=== PATIENT | male | born 1945 | race Caucasian/White ===

== ENCOUNTER 2016-09-24 12:18 | Emergency (ER) | payer OTHER, MEDICARE ==
[~2016-09-24] VITALS: Ht 177.8 cm; Wt 111.3 kg
[~2016-09-24 12:18] MED LIST: ACET325T51 PO; ALPR0.25 PEG; ASPI-914 PO; BACL10TA PO; BISA10SU8 RECTALLY; CARV12.52 PO; CEFE1VIA7 IM; CYCL30DR BOTH EYES; DOCU50LI PEG; DULO30CA52 PEG; FINA5TAB42 PO; FURO40TA5 PEG; GABA-336 PO; HYDR-4180 PO; HYDR-4246 PEG; IBUP100O15 PEG; INSU100V12 SQ; INSU100V13 SQ; IPRA3AMP AEROSOL; LEVO50TA PO; MAGN800O PEG; MULT9LIQ3 PEG; NA P133E23 RECTALLY; POLY17PO6 PEG; POTA20LI4 PEG; PRAV40TA3 PEG; PRED5TAB PEG; RISP1TAB27 PO; SPIR25TA4 PEG; TAMS0.4C47 PO; THIA100T13 PEG; TOFA5TAB PEG; TRAM50TA4 PO; ZINC220C8 PEG; [UNRECOGNIZED DRUG - CODE] PEG
[2016-09-24 12:20] VITALS: Ht 177.8 cm; Wt 111.3 kg
--- NOTE | 2016-09-24 12:20 | NUR ---
SCIENCE EDITOR N. NOLD SCIENCE EDITOR AT BEDSIDE.
--- OUTSIDE RECORDS SUMMARY | 2016-09-24 12:27 | XMS REPORT | Referral Summary ---
Author Author [facility] Organization [facility] Address Unknown Phone Unavailable Care Team Providers Care Retail Helper Name Role Phone Jodie Boyce Primary Care Physician [phone] Encounter VC Date(s): 05/28/16 - 05/30/16 [facility] [address] [place] [address] Discharge Disposition: 03-Detention Facility Attending Physician: Mini Harris MD Admitting Physician: Ngozi Pedraza MD Vital Signs Most recent to 1 oldest [Reference Range]: Temperature Oral 36.9 degC [35.8-37.3 degC] (05/30/16 8:00 AM) Peripheral Pulse 89 bpm Rate [60-100 bpm] (05/30/16 8:00 AM) Heart Rate Monitored 72 bpm [60-100 bpm] (05/28/16 7:20 PM) Respiratory Rate 16 br/min [14-20 br/min] (05/30/16 4:50 PM) Blood Pressure 101/66 mmHg [90-140/60-90 mmHg] (05/30/16 8:00 AM) Mean Arterial 82 mmHg Pressure, Cuff (05/28/16 7:01 PM) Pulse Rate [60-100 86 bpm bpm] (05/30/16 4:50 PM) SpO2 97 % (05/30/16 10:22 AM) Remote Telemetry Ongoing (05/29/16 8:00 PM) Problem List Condition Effective Dates Status Health Status Informant Acute Active pain(Confirmed) Alteration in Active nutrition(Confirmed) 1 Anemia(Confirmed) Active patient At risk of pressure Active sore(Confirmed) Bipolar 1 Active patient disorder(Confirmed) Cerebral Active patient infarction(Confirmed ) Chronic kidney Active patient disease (CKD)(Confirmed) Chronic obstructive Active patient pulmonary disease(Confirmed) Chronic pain Active patient syndrome(Confirmed) 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) Constipation(Confirm Active patient ed) Diabetes Active patient mellitus(Confirmed) 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(Confirmed) GERD Active patient (gastroesophageal reflux disease)(Confirmed) Gastrostomy Active patient status(Confirmed) Hypercholesterolemia Active patient (Confirmed) Hypertensive heart Active patient disease without heart failure(Confirmed) Fluid Active patient overload(Confirmed) Hypothyroidism(Confi Active patient rmed) Inflammatory Active patient polyarthropathies(Co nfirmed) Reduced Active patient mobility(Confirmed) Major depressive Active patient disorder(Confirmed) Manic bipolar I Active patient disorder(Confirmed) [place] Active patient syndrome(Confirmed) Muscle Active patient weakness(Confirmed) BPH (benign Active patient prostatic hyperplasia)(Confirm ed) Obesity(Confirmed) Active patient Obstructive sleep Active patient apnea(Confirmed) Pedophilia(Confirmed Active patient ) Pneumonitis due to Active patient inhalation of food and vomit(Confirmed) Psychoactive Active patient substance abuse(Confirmed) Feeling of Active patient incomplete bladder emptying(Confirmed) Suicidal Active patient ideations(Confirmed) Urinary tract Active patient infection(Confirmed) 1Problem added automatically by system based on initiation of Alteration in Nutrition Plan of Care Allergies, Adverse Reactions, Alerts Substance Reaction Severity Status lisinopril Adverse drug effect Medium Active methotrexate Adverse drug effect Medium Active penicillin Adverse drug effect Medium Active QUEtiapine Adverse drug effect Medium Active Terazosin-1 Adverse drug effect Medium Active valproic acid Adverse drug reaction Medium Active Medications aspirin 81 mg, Oral, Daily, 0 Refill(s) Start Date: 05/28/16 Status: Ordered Atropine 1% drops Atropine 1% drops, PRN Secretions, 1-2 drops every 8 hours, 0 Refill(s) Start Date: 05/28/16 Status: Ordered Bisac-Evac 10 mg rectal suppository 10 mg 1 supp, Rectal, Daily, as needed for constipation Start Date: 05/28/16 Status: Ordered busPIRone 10 mg, Oral, BID, 0 Refill(s) Start Date: 05/28/16 Status: Ordered carvedilol 12.5 mg, Oral, BID, 0 Refill(s) Start Date: 05/28/16 Status: Ordered clindamycin 150 mg oral capsule 300 mg 2 caps, Oral, q6hr, x2 days, 0 Refill(s) Start Date: 05/30/16 Status: Ordered Cymbalta 30 mg oral delayed release capsule 30 mg 1 caps, Oral, Daily, 0 Refill(s) Start Date: 05/28/16 Status: Ordered Debrox 6.5% otic solution 5 drops, Ear-Both, BID, X 4 days, # 15 mL, 0 Refill(s), other reason (Rx) Start Date: 05/30/16 Stop Date: 06/03/16 Status: Ordered docusate sodium 10 mg/mL oral liquid 100 mg 10 mL, G-Tube, BID, 0 Refill(s) Start Date: 05/28/16 Status: Ordered DuoNeb 0.5 mg-2.5 mg/3 mL inhalation solution 3 mL, NEB, QID, 0 Refill(s) Start Date: 05/28/16 Status: Ordered finasteride 5 mg oral tablet 5 mg 1 tabs, Oral, Daily, 0 Refill(s) Start Date: 05/28/16 Status: Ordered Fleet Enema 7 g-19 g rectal enema 1 Each, Rectal, Once, as needed for constipation Start Date: 05/28/16 Status: Ordered furosemide 40 mg, PEG-Tube, BID, 0 Refill(s) Start Date: 05/28/16 Status: Ordered gabapentin 300 mg, Oral, TID, 0 Refill(s) Start Date: 05/28/16 Status: Ordered ibuprofen 50 mg/1.25 mL oral suspension 800 mg 20 mL, PEG-Tube, TID, 0 Refill(s) Start Date: 05/28/16 Status: Ordered Levemir 100 units/mL subcutaneous solution 12 units, SubCutaneous, Bedtime (once a day), 0 Refill(s) Start Date: 05/30/16 Status: Ordered Levoxyl 50 mcg, Oral, Daily, 0 Refill(s) Start Date: 05/28/16 Status: Ordered MiraLax 17 g, Oral, BID, 0 Refill(s) Start Date: 05/28/16 Status: Ordered morphine 10 mg/5 mL oral solution 7.5 mg 3.75 mL, G-Tube, q8hr, Pain Severe (7-10), 0 Refill(s) Start Date: 05/30/16 Status: Ordered morphine 15 mg/12 hr oral tablet, extended release See Instructions, Take one per g-tube five times a day and one every 5 hours prn. joann [id number], # 500 tabs, 0 Refill(s) Start Date: 05/30/16 Status: Ordered multivitamin 1 tabs, Oral, Daily, 0 Refill(s) Start Date: 05/28/16 Status: Ordered NovoLOG 4 units, SubCutaneous, TIDAC, 0 Refill(s) Start Date: 05/28/16 Status: Ordered ondansetron 4 mg, Oral, q4hr, as needed for nausea/vomiting, 0 Refill(s) Start Date: 05/28/16 Status: Ordered pravastatin 20 mg, G-Tube, Bedtime (once a day), 0 Refill(s) Start Date: 05/28/16 Status: Ordered predniSONE 5 mg, PEG-Tube, Daily, 0 Refill(s) Start Date: 05/28/16 Status: Ordered Remeron 15 mg oral tablet 15 mg 1 tabs, Oral, Bedtime (once a day), 0 Refill(s) Start Date: 05/28/16 Status: Ordered Restasis 0.05% ophthalmic emulsion 1 drops, Eye-Both, BID, 0 Refill(s) Start Date: 05/28/16 Status: Ordered risperiDONE 0.5 mg oral tablet 1 mg 2 tabs, Oral, Bedtime (once a day), 0 Refill(s) Start Date: 05/28/16 Status: Ordered spironolactone 25 mg, Oral, BID, 0 Refill(s) Start Date: 05/28/16 Status: Ordered tamsulosin 0.4 mg, Oral, Bedtime (once a day), 0 Refill(s) Start Date: 05/28/16 Status: Ordered thiamine 100 mg, PEG-Tube, Daily, 0 Refill(s) Start Date: 05/28/16 Status: Ordered tofacitinib 5 mg, PEG-Tube, BID, start on Friday, 0 Refill(s) Start Date: 05/28/16 Status: Ordered Tylenol 325 mg oral capsule 650 mg 2 caps, Oral, q4hr, as needed for pain, *KRISTEN*, 0 Refill(s) Start Date: 05/28/16 Status: Ordered Tylenol 325 mg oral capsule 650 mg 2 caps, Oral, TID, *KRISTEN, 0 Refill(s) Start Date: 05/28/16 Status: Ordered Zinc 220 mg, PEG-Tube, Daily, 0 Refill(s) Start Date: 05/28/16 Status: Ordered Results Blood Gases Most recent to 1 oldest [Reference Range]: pH [7.35-7.45] 7.34 *LOW* (05/28/16 1:51 PM) pCO2 Art [35-45 75 mmHg mmHg] *HHI* (05/28/16 1:51 PM) Bicarbonate [22-26 40 mEq/L mEq/L] *HI* (05/28/16 1:51 PM) Base Excess Art 12 [0-2] *HI* (05/28/16 1:51 PM) O2 Sat Art 94.9 % [90.0-97.0 %] (05/28/16 1:51 PM) pO2 Art [80-100 78 mmHg mmHg] *LOW* (05/28/16 1:51 PM) LPM Art 3.0 L/min (05/28/16 1:51 PM) O2 Panel nasal cannula (05/28/16 1:51 PM) Spec Site A. radialis l. (05/28/16 1:51 PM) Hematology Most recent to 1 oldest [Reference Range]: WBC [4.8-10.8 5.4 10*3/uL 10*3/uL] (05/30/16 7:34 AM) RBC [4.60-6.20] 3.46 *LOW* (05/30/16 7:34 AM) Hgb [14.0-18.0 10.8 gm/dL gm/dL] *LOW* (05/30/16 7:34 AM) Hct [42.0-52.0 %] 34.1 % *LOW* (05/30/16 7:34 AM) MCV [82.0-99.0 fL] 98.6 fL (05/30/16 7:34 AM) MCH [27.0-32.0 pg] 31.2 pg (05/30/16 7:34 AM) MCHC [32.0-36.0 31.7 gm/dL gm/dL] *LOW* (05/30/16 7:34 AM) RDW [11.5-14.5 %] 14.3 % (05/30/16 7:34 AM) Platelet [150-400 244 10*3/uL 10*3/uL] (05/30/16 7:34 AM) MPV [9.4-12.3 fL] 8.9 fL *LOW* (05/30/16 7:34 AM) Immature 0.4 % Granulocytes (05/30/16 7:34 AM) [0.0-1.0 %] Neutrophils [51-75 64 % %] (05/30/16 7:34 AM) Band Man [0-8 %] 4 % (05/29/16 5:40 AM) Lymphocytes [20-46 23 % %] (05/30/16 7:34 AM) Monocytes [4-11 %] 11 % (05/30/16 7:34 AM) Eosinophils [0-4 %] 2 % (05/30/16 7:34 AM) Basophils [0-2 %] 0 % (05/30/16 7:34 AM) Neutro Absolute 3.45 [1.90-7.00] (05/30/16 7:34 AM) Lymph Absolute 1.23 [0.80-3.30] (05/30/16 7:34 AM) Lawrence Absolute 0.57 [0.30-1.00] (05/30/16 7:34 AM) Eos Absolute 0.13 [0.00-0.50] (05/30/16 7:34 AM) Baso Absolute 0.02 [0.00-0.20] (05/30/16 7:34 AM) Nucleated RBC 0.0 /100 WBC Automated [0 /100 (05/30/16 7:34 AM) WBC] Differential Reviewed (05/29/16 5:40 AM) Coagulation Most recent to 1 oldest [Reference Range]: INR [0.9-1.2] 1.0 (05/28/16 1:57 PM) PTT [25.0-35.0 33.2 seconds seconds] (05/28/16 1:57 PM) Chemistry Most recent to 1 oldest [Reference Range]: Sodium Lvl [136-144 139 mEq/L mEq/L] (05/30/16 7:34 AM) Potassium Lvl 3.6 mEq/L [3.6-5.1 mEq/L] (05/30/16 7:34 AM) Chloride [99-109 100 mEq/L mEq/L] (05/30/16 7:34 AM) CO2 [22-32 mEq/L] 33 mEq/L *HI* (05/30/16 7:34 AM) AGAP [3-20] 6 (05/30/16 7:34 AM) BUN [4-20 mg/dL] 11 mg/dL (05/30/16 7:34 AM) Glucose Lvl [70-100 104 mg/dL mg/dL] *HI* (05/30/16 7:34 AM) Creatinine Lvl 0.67 mg/dL [0.64-1.27 mg/dL] (05/30/16 7:34 AM) eGFR [>60] >60 1 (05/30/16 7:34 AM) Calcium Lvl 9.0 mg/dL [8.6-10.0 mg/dL] (05/30/16 7:34 AM) Albumin Lvl [3.5-4.8 2.5 gm/dL gm/dL] *LOW* (05/30/16 7:34 AM) Total Protein 5.6 gm/dL [6.1-7.9 gm/dL] *LOW* (05/29/16 5:40 AM) Globulin [1.9-4.3 3.3 gm/dL gm/dL] (05/29/16 5:40 AM) ALT [17-63 U/L] 14 U/L *LOW* (05/29/16 5:40 AM) AST [15-41 U/L] 21 U/L (05/29/16 5:40 AM) Alk Phos [26-104 64 U/L U/L] (05/29/16 5:40 AM) Bili Total [0.2-1.2 0.4 mg/dL 2 mg/dL] (05/29/16 5:40 AM) Phosphorus [2.4-4.7 2.5 mg/dL 3 mg/dL] (05/30/16 7:34 AM) BNP [0-99 pg/mL] 186 pg/mL *HI* (05/29/16 9:38 PM) Lactic Acid Lvl 0.7 mEq/L [0.5-2.2 mEq/L] (05/28/16 7:41 PM) Sodium Venous 137 mEq/L [136-144 mEq/L] (05/28/16 1:36 PM) Potassium Venous 3.8 mEq/L 4 [3.6-5.1 mEq/L] (05/28/16 1:36 PM) Calcium Ionized 1.15 mmol/L Venous [1.19-1.41 *LOW* mmol/L] (05/28/16 1:36 PM) Total CO2 Venous 40 mEq/L [25-29 mEq/L] *HI* (05/28/16 1:36 PM) HGB Venous NPT 11.2 gm/dL [14.0-16.0 gm/dL] *LOW* (05/28/16 1:36 PM) HCT Venous 33.0 % [42.0-52.0 %] *LOW* (05/28/16 1:36 PM) Glucose Venous 62 mg/dL [70-100 mg/dL] *LOW* (05/28/16 1:36 PM) BUN Venous [4-20] 33 *HI* (05/28/16 1:36 PM) Creatinine Venous 1.2 mg/dL [0.7-1.2 mg/dL] (05/28/16 1:36 PM) Venous CL [99-109 89 mEq/L mEq/L] *LOW* (05/28/16 1:36 PM) Anion Gap, Arjun 8 [3-20] (05/28/16 1:36 PM) Blood Glucose, 324 mg/dL Capillary [74-106 *HI* mg/dL] (05/30/16 2:16 PM) Troponin-POC Negative (05/28/16 1:40 PM) Hgb A1c [4.1-5.6 %] 8.6 % *HI* (05/29/16 5:40 AM) eAvg Glucose 200.1 mg/dL (05/29/16 5:40 AM) 1Result Comment: Multiply eGFR results by 1.21 for race. 2Result Comment: Naproxen, specifically the metabolite O-desmethylnaproxen, may cause spurious elevation in Total Bilirubin levels. 3Result Comment: High dosages of liposomal Amphotericin B (AmBisome) therapy or other drug preparations that use a liposomal envelope to facilitate drug delivery may cause falsely elevated results for phosphorus. 4Result Comment: This test was performed on a whole blood specimen. The presence or absence of hemolysis cannot be assessed. Hemolysis can falsely elevate potassium levels. Normals are for venous specimens only. Urinalysis Most recent to 1 oldest [Reference Range]: UA Color Yellow (05/28/16 2:44 PM) UA Appear Sl Cloudy (05/28/16 2:44 PM) UA pH [5.0-8.0] 6.0 (05/28/16 2:44 PM) UA Leuk Est Pos 2+ [Negative] *ABN* (05/28/16 2:44 PM) UA Nitrite Negative [Negative] (05/28/16 2:44 PM) UA Protein Negative [Negative] (05/28/16 2:44 PM) UA Glucose Negative [Negative] (05/28/16 2:44 PM) UA Ketones Negative [Negative] (05/28/16 2:44 PM) UA Urobilinogen Negative [<1.0] (05/28/16 2:44 PM) UA Bili [Negative] Negative (05/28/16 2:44 PM) UA Blood [Negative] Negative (05/28/16 2:44 PM) UA Spec Grav 1.010 [1.003-1.030] (05/28/16 2:44 PM) Type Clean Catch (05/28/16 2:44 PM) UA WBC [0-4 /HPF] >50 /HPF *ABN* (05/28/16 2:44 PM) UA RBC [0-2] 5-10 *ABN* (05/28/16 2:44 PM) Epithelial Cells 0-2 (05/28/16 2:44 PM) UA Bacteria Rare (05/28/16 2:44 PM) UA Hyal Cast [0-3] 4-6 *ABN* (05/28/16 2:44 PM) Microbiology Reports TEST: Respiratory Virus Panel - PCR STATUS: Auth (Verified) BODY SITE: SOURCE: Nasopharyngeal Swab COLLECTED DATE/TIME: 05/29/16 11:30 AM Respiratory Virus Panel - PCR Coronavirus OC43 Positive by PCR . Specimen tested for the following FDA approved viral targets: Influenza A, Influenza A subtype H1, Influenza A subtype H3, Influenza A 2009 H1N1, Influenza B, Respiratory Syncytial Virus subtype A, Respiratory Syncytial Virus subtype B, Adenovirus B/E, Adenovirus C, Rhinovirus, Parainfluenza virus 1, Parainfluenza virus 2, Parainfluenza virus 3, and Human Metapneumovirus. . The following viral targets were also tested. Although not FDA approved, these targets have been validated by our laboratory for clinical diagnosis: Parainfluenza virus 4, Coronavirus 229E, Coronavirus NL63, Coronavirus HKU1, and Coronavirus OC43. ORGANISM:Coronavirus OC43 TEST: Urine Culture STATUS: Auth (Verified) BODY SITE: SOURCE: Urine COLLECTED DATE/TIME: 05/28/16 2:44 PM Urine Culture Mixed herb. Multiple isolates. No further workup will be performed on this culture. TEST: Blood Culture STATUS: Order in Progress BODY SITE: SOURCE: Blood COLLECTED DATE/TIME: 05/28/16 1:58 PM Blood Culture No growth after 12 hours incubation. Nursing unit will be called if growth is detected. - TEST: Blood Culture STATUS: Order in Progress BODY SITE: SOURCE: Blood COLLECTED DATE/TIME: 05/28/16 1:58 PM Blood Culture No growth after 12 hours incubation. Nursing unit will be called if growth is detected. - Immunizations No data available for this section Procedures Procedure Date Related Diagnosis Body Site Arterial puncture, withdrawal of blood for 05/28/16 diagnosis Social History Social History Type Response Smoking Status Unknown if ever smoked Assessment and Plan No data available for this section
--- OUTSIDE RECORDS SUMMARY | 2016-09-24 12:28 | XMS REPORT | Continuity of Care Document ---
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 Phone RAMA CHASE MD Primary Care Physician [phone] Insurance Providers Payer Name Policy Number Subscriber Name Relationship [facility] Administration [id number] Alo Romero 16 Self / Same As Patient Chief Complaint and Reason for Visit Chief Complaint Genitourinary Complaint Reason for Visit Urinary tract infection [id number] Problems Medical Problems Problem Onset Date Status Retention of urine ~09/26/2013 Active Constipation ~09/26/2013 Active Diabetes mellitus type 2 Unknown Active Benign hypertension Unknown Active Arthritis Unknown Active Disorder of prostate Unknown Active Chronic pain Unknown Active Shortness of breath ~01/16/2014 Active Chronic obstructive pulmonary disease Unknown Active Hyperglycemia without ketosis Unknown Active Diarrhea ~10/13/2014 Active Acute respiratory distress 04/01/2014 Active SIRS (systemic inflammatory response syndrome) 04/01/2014 Active Sepsis 04/01/2014 Active COPD exacerbation 04/04/2014 Active Urinary retention Unknown Active Urinary tract infection Unknown Active UTI (urinary tract infection) Unknown Active Medications Medication Dose Route Sig Days/Qty Instructions Order Date Discontinued Date Status Abatacept 125 Mg SQ Weekly 09/26/13 01/30/15 Discontinued Albuterol Sulfate 1.25 Mg RESPIRATORY (INHALATION) 09/26/13 Discontinued Amlodipine Besylate (Norvasc) 10 Mg ORAL DAILY 09/26/13 Active Benztropine Mesylate 0.5 Mg ORAL 09/26/13 04/01/14 Discontinued Calcium/Vitamin D 600 Mg GT 09/26/13 04/01/14 Discontinued Carvedilol (Coreg) 25 Mg ORAL TWICE A DAY 09/26/13 Active Chlorthalidone 25 Mg ORAL 09/26/13 04/01/14 Discontinued Cyclopentolate Hcl 2 Ml OPTHALMIC 09/26/13 04/01/14 Discontinued Docusate Sodium 100 Mg ORAL 09/26/13 04/01/14 Discontinued [Fentanyl Patch] 09/26/13 04/01/14 Discontinued Finasteride (Proscar) 10 Mg ORAL DAILY 09/26/13 Active Gabapentin (Neurontin) 400 Mg ORAL FOUR TIMES DAILY 09/26/13 Active Glipizide 10 Mg ORAL TWICE A DAY 09/26/13 04/04/14 Discontinued Hydrocodone Bit/Acetaminophen 1 Each ORAL FOUR TIMES DAILY PRN PAIN 09/26/13 01/30/15 Discontinued Hypromellose 15 Ml OPTHALMIC 09/26/13 04/01/14 Discontinued Insulin Glargine,Hum.rec.anlog 100 Unit SQ 09/26/13 04/01/14 Discontinued Leflunomide 20 Mg ORAL DAILY 09/26/13 Active Losartan Potassium (Cozaar) 100 Mg ORAL DAILY 09/26/13 Active Metformin Hcl (Glucophage) 850 Mg ORAL TWICE A DAY 09/26/13 Discontinued Mometasone/Formoterol 13 Gm RESPIRATORY (INHALATION) 09/26/13 Discontinued Pantoprazole Sod 40 Mg ORAL 09/26/13 04/01/14 Discontinued Pravastatin Sodium 80 Mg ORAL BEDTIME 09/26/13 Active Risperidone 1 Mg ORAL 09/26/13 04/01/14 Discontinued Tamsulosin Hcl 0.4 Mg ORAL BEDTIME 09/26/13 Active Albuterol Sulf 20 Ml HHN 09/26/13 04/01/14 Discontinued Aspirin 81 Mg ORAL DAILY 09/26/13 Active Radcliffe 3 Polyunsat Fatty Acids 1,000 Mg ORAL DAILY 09/26/13 Active Budesonide, Micronized 0.5 Gm MC TWICE A DAY 04/01/14 04/01/14 Discontinued Colchicine 0.6 Mg ORAL TWICE A DAY 04/01/14 Active Cyclosporine, Modified 100 Mg ORAL DIRECTED 04/01/14 04/01/14 Discontinued Levothyroxine Sodium (Synthroid) 50 Mcg ORAL DAILY 04/01/14 Active Prednisone 40 Mg ORAL DAILY 04/01/14 04/04/14 Discontinued Albuterol/Ipratropium 1 Puff RESPIRATORY (INHALATION) FOUR TIMES DAILY 04/01/14 Active Ipratropium/Albuterol Sulfate 3 Ml RESPIRATORY (INHALATION) FOUR TIMES DAILY PRN DYSPNEA 04/01/14 Active Budesonide/Formoterol Fumarate 2 Puff RESPIRATORY (INHALATION) TWICE A DAY 04/01/14 Active Cyclosporine 1 Each OPTHALMIC THREE TIMES A DAY 04/01/14 10/16/14 Discontinued Sennosides/Docusate Sodium 2 Tab ORAL TWICE A DAY 04/01/14 Active Fentanyl 50 Mcg TRANSDERMAL Q72H 04/01/14 Active Hydralazine Hcl 10 Mg ORAL TWICE A DAY 04/01/14 Active Insulin Detemir (Insulin Levemir) 30 Unit SQ BEDTIME 04/01/14 Active Chlorhex Gl/Glycerin/He-Cell 0.5 Inch OPTHALMIC BEDTIME 04/01/14 Active Polyethylene Glycol 1000 34 Gm ORAL DAILY 04/01/14 Active Calcium Carbonate/Vitamin D3 1 Each ORAL TWICE A DAY 04/01/14 Active Omeprazole 40 Mg ORAL DAILY 04/01/14 Active Risperidone 1 Mg ORAL BEDTIME 04/01/14 Active Levofloxacin 750 Mg ORAL DAILY 3 Qty 04/04/14 10/16/14 Discontinued Prednisone 5 Mg ORAL DAILY For COPD 53 Qty Take 20 mg po daily x 5 days then Take 15mg po daily x 5 days then Take 10 mg po daily x 5days then Take 5 mg po daily x 5 days then Take 5 mg po every other day x 5 days and stop! 04/0410/16/14 Discontinued Insulin Lispro (Insulin Humalog) 5 Unit SQ THREE TIMES DAILY WITH MEALS 1 Qty 04/04/14 10/16/14 Discontinued Glipizide 10 Mg ORAL TWICE A DAY WITH MEALS 10/16/14 Active Metformin Hcl (Glucophage) 850 Mg ORAL TWICE A DAY WITH MEALS Active Prednisone 5 Mg ORAL TWICE A DAY 10/16/14 Active Clonidine Hcl 0.2 Mg ORAL THREE TIMES A DAY 01/30/15 Active Diclofenac Sodium 100 Gm TOPICAL TWICE A DAY 01/30/15 Active Ondansetron 4 Mg ORAL TWICE A DAY 01/30/15 Active Oxycodone Hcl 5 Mg ORAL TWICE A DAY 01/30/15 Active Pregabalin 75 Mg ORAL TWICE A DAY 01/30/15 Active Tramadol Hcl 50 Mg ORAL THREE TIMES A DAY 01/30/15 Active Tofacitinib Citrate 5 Mg ORAL TWICE A DAY 01/30/15 Active Ciprofloxacin/Ciprofloxa Hcl 500 Mg ORAL TWICE A DAY 02/10/15 Active Social History No social history. Hospital Discharge Instructions No hospital discharge instructions. Plan of Care Discharge Date 02/10/15 3:19am Disposition 01 HOME OR SELF-CARE Condition at Discharge Stable Instructions/Education Provided Urinary Tract Infection in Men (ED) Prescriptions See Medications Section Referrals RAMA CHASE MD Additional Instructions/Education ED DAVID if any worse. Continue Cipro. Follow up with your doctor. Some of your test results may not be complete prior to your leaving the Emergency Department. The Emergency Department is not authorized to give test results over the phone. Please contact the doctor's office listed in this packet of information for your final results. Follow up with your primary care physician or return to the Emergency Department for worsening or worrisome symptoms. * Emergency Department phone number: [phone], x [phone]* MEDICAL RECORD If you need copies of your X-rays, call [phone]. If you need copies of your medical record, including lab results, a signed authorization for release of records will be required. A telephone call for release of Health Information is not allowed. BILLING Billing can sometimes be confusing and frustrating. To help avoid confusion in the future, please take a moment to acquaint yourself with the billing parties for services. SERVICE BILLING [employer] Emergency Room Services [facility] Physician Services [facility] X-rays [facility] Patients will receive bills for services from the appropriate provider. If you have any questions about your [facility] bill, our staff will be happy to assist you. Please call [phone], and ask for the billing department. THANK YOU for choosing [facility] as your emergency care provider! Functional Status No functional status results. Allergies, Adverse Reactions, Alerts Allergen Type Severity Reaction Status Last Updated Penicillin Allergy Unknown Active 02/10/15 Lisinopril Allergy Unknown Active 02/10/15 Codeine Allergy Unknown Active 02/10/15 Valproic Acid Allergy Unknown Active 02/10/15 Methotrexate Allergy Unknown Active 02/10/15 Terazosin Allergy Unknown Active 02/10/15 Immunizations No immunization records. Vital Signs Acute Vital Signs Vital Response Date/Time Temperature (Fahrenheit) 97.0 Pulse 109 bpm Respirations 20 Height 5 ft 11 in Weight 239 lb Body Mass Index 33.0 kg/m^2 Results Test Source Date Result Interp. Ref. Range Comments Absolute Band Neutrophils April 03, 2014 5:10am 0.4 # Collected by nurse? N Activated Partial Thromboplast Time October 16, 2014 9:25am 24.1 SEC L 24.9- 35.9 Alanine Aminotransferase (ALT/SGPT) January 30, 2015 12:15pm 26 U/L L 30- 65 Albumin January 30, 2015 12:15pm 4.5 g/dL N 3.4-5.0 Albumin/Globulin Ratio January 30, 2015 12:15pm 1.250 N 1.1-1.8 Alkaline Phosphatase January 30, 2015 12:15pm 88 U/L N 38-126 Rainer Test April 01, 2014 9:35am Pos Anion Gap January 30, 2015 12:15pm 16.7 MEQ/L H 3-15 Arterial Blood Base Excess October 16, 2014 9:39am 5.0 H -2.0-3.0 Arterial Blood HCO3 October 16, 2014 9:39am 29.5 MEQ/L H 22.0-26.0 Arterial Blood Oxygen Saturation October 16, 2014 9:39am 96 % N 95-98 Arterial Blood Partial Pressure CO2 October 16, 2014 9:39am 48 mmHg H 35-45 Arterial Blood Partial Pressure O2 October 16, 2014 9:39am 84 mmHg N 80-105 Arterial Blood Total CO2 October 16, 2014 9:39am 31.0 MARIEL/L H 23.0-27.0 Arterial Blood pH October 16, 2014 9:39am 7.39 N 7.35-7.45 All ABG Results called to marina read back the results. Called by Suyapa Junior at [id number] Aspartate Amino Transf (AST/SGOT) January 30, 2015 12:15pm 19 U/L N 15- 37 B-Type Natriuretic Peptide April 01, 2014 8:13am 9 PG/ML N 0-100 Collected by nurse? NComment to Health Plan Specialist: Use blood in lab. BUN/Creatinine Ratio January 30, 2015 12:15pm 16 N 10-20 Band Neutrophils % April 03, 2014 5:10am 4 % N 0-6 Collected by nurse? N Basophils # (Auto) January 30, 2015 12:15pm 0.0 10^3uL Basophils % (Manual) April 03, 2014 5:10am 0 % N 0-2 Collected by nurse? N Basophils (%) (Auto) January 30, 2015 12:15pm 0 % N 0-2 Blood Gas Liter Flow October 16, 2014 9:39am 12.0 LPM Blood Gas Puncture Site October 16, 2014 9:39am Left radial Blood Morphology Comment April 03, 2014 5:10am Normal NORMAL Collected by nurse? N Blood Urea Nitrogen January 30, 2015 12:15pm 12 mg/dL N 7-18 C-Reactive Protein October 16, 2014 9:25am 2.00 mg/dL H 0.0-0.9 Calcium Level January 30, 2015 12:15pm 10.1 mg/dL N 8.8-10.8 Calcium/Ionized Calcium Ratio January 30, 2015 12:15pm 4.1 mg/dL N 3.8- 4.6 Calculated Osmolality January 30, 2015 12:15pm 269 mosm/L L 280-300 Carbon Dioxide Level January 30, 2015 12:15pm 28 mmol/L N 22-29 Chloride Level January 30, 2015 12:15pm 93 mmol/L L 98-108 Creatinine January 30, 2015 12:15pm 0.77 mg/dL L 0.8-1.5 D-Dimer October 16, 2014 9:25am 4.89 ug/mL PH 0.00-0.41 Results called to [place] ERwho read back the results. Called by Ngozi Browning at 1002 Differential Total Cells Counted April 03, 2014 5:10am 100 Collected by nurse? N Eosinophils # April 03, 2014 5:10am 0.3 # Collected by nurse? N Eosinophils # (Auto) January 30, 2015 12:15pm 0.2 10^3uL Eosinophils % (Manual) April 03, 2014 5:10am 3 % N 0-4 Collected by nurse? N Eosinophils (%) (Auto) January 30, 2015 12:15pm 3 % N 0-4 Estimat Glomerular Filtration Rate January 30, 2015 12:15pm 120.5 Estimated GFR (Non- January 30, 2015 12:15pm 99.6 Glucose Level January 30, 2015 12:15pm 288 mg/dL DH 70-110 Hematocrit January 30, 2015 12:15pm 43.30 % N 39.00-50.00 Hemoglobin January 30, 2015 12:15pm 14.2 g/dL N 13.5-17.0 Hemoglobin A1c April 01, 2014 8:13am 10.1 % H 4.8-6.0 Collected by nurse? NComment to Health Plan Specialist: Use blood in lab. Influenza Virus Type A Antibody October 16, 2014 10:20am Negative Influenza Virus Type B Antibody October 16, 2014 10:20am Negative Lactic Acid Level April 01, 2014 9:12am 2.0 mEq/L 0.5-2.2 Lymphocytes # April 03, 2014 5:10am 3.7 # Collected by nurse? N Lymphocytes # (Auto) January 30, 2015 12:15pm 2.4 X10^3 Lymphocytes % (Manual) April 03, 2014 5:10am 38 % N 20-46 Collected by nurse? N Lymphocytes (%) (Auto) January 30, 2015 12:15pm 30 % N 20-46 Mean Corpuscular Hemoglobin January 30, 2015 12:15pm 25.4 PG L 26.0-34.0 Mean Corpuscular Hemoglobin Concent January 30, 2015 12:15pm 32.8 g/dL N 31.0-37.0 Mean Corpuscular Volume January 30, 2015 12:15pm 77 FL L 80-100 Mean Platelet Volume January 30, 2015 12:15pm 8.7 FL N 6.0-9.5 Monocytes # April 03, 2014 5:10am 0.7 # Collected by nurse? N Monocytes # (Auto) January 30, 2015 12:15pm 0.7 X10^3 Monocytes % (Manual) April 03, 2014 5:10am 8 % N 3-11 Collected by nurse? N Monocytes (%) (Auto) January 30, 2015 12:15pm 9 % N 3-11 Neutrophils # April 03, 2014 5:10am 4.6 # Collected by nurse? N Neutrophils # (Auto) January 30, 2015 12:15pm 4.5 X10^3 Neutrophils (%) (Auto) January 30, 2015 12:15pm 57 % N 51-67 Platelet Count January 30, 2015 12:15pm 298 10^3uL N 150-450 Potassium Level January 30, 2015 12:15pm 4.0 mmol/L N 3.5-5.1 Prothromb Time International Ratio October 16, 2014 9:25am 1.1 N 0.8-1.4 Prothrombin Time October 16, 2014 9:25am 14.2 SEC N 11.9-14.2 Red Blood Count January 30, 2015 12:15pm 5.60 10^6uL H 4.50-5.50 Red Cell Distribution Width January 30, 2015 12:15pm 14.5 % N 11.8-15.6 Segmented Neutrophils % April 03, 2014 5:10am 47 % L 51-67 Collected by nurse? N Sodium Level January 30, 2015 12:15pm 134 mmol/L L 135-150 Thyroid Stimulating Hormone (TSH) October 16, 2014 9:25am 2.53 uIU/mL DN 0.46-4.68 Total Bilirubin January 30, 2015 12:15pm 0.5 mg/dL N 0.1-1.0 Total Protein January 30, 2015 12:15pm 8.1 g/dL N 6.4-8.5 Troponin I April 01, 2014 8:13am 0.012 ng/mL N 0.010-0.080 Collected by nurse? NComment to Health Plan Specialist: Use blood in lab. Urine Bacteria February 10, 2015 1:35am 1+ /HPF Urine collection method Clean Catch Urine Bilirubin February 10, 2015 1:35am Negative Negative Urine collection method Clean Catch Urine Blood April 01, 2014 10:35am 2+ H Negative Urine collection method Clean Catch Urine Clarity February 10, 2015 1:35am Cloudy Urine collection method Clean Catch Urine Collection Type February 10, 2015 1:35am Catheter Urine collection method Clean Catch Urine Color February 10, 2015 1:35am Yellow Urine collection method Clean Catch Urine Glucose (UA) February 10, 2015 1:35am Trace H Negative Urine collection method Clean Catch Urine Ketones February 10, 2015 1:35am Negative Negative Urine collection method Clean Catch Urine Leukocyte Esterase February 10, 2015 1:35am 1+ H Negative Urine collection method Clean Catch Urine Mucus January 30, 2015 12:00pm 1+ Urine collection method Catheter Urine Nitrite February 10, 2015 1:35am Positive H Negative Urine collection method Clean Catch Urine Protein February 10, 2015 1:35am 2+ H Negative Urine collection method Clean Catch Urine RBC February 10, 2015 1:35am 2-5 /HPF Urine collection method Clean Catch Urine RBC (Auto) February 10, 2015 1:35am 1+ H Negative Urine collection method Clean Catch Urine Specific Ulen February 10, 2015 1:35am 1.020 1.005-1.030 Urine collection method Clean Catch Urine Squamous Epithelial Cells February 10, 2015 1:35am Ns /LPF Urine collection method Clean Catch Urine Urobilinogen February 10, 2015 1:35am 0.2 mg/dL 0.2-1.0 Urine collection method Clean Catch Urine WBC February 10, 2015 1:35am >100 /HPF H Urine collection method Clean Catch Urine pH February 10, 2015 1:35am 7.5 5.0 - 8.0 Urine collection method Clean Catch Volume Urine Centrifuged February 10, 2015 1:35am 12 ml Urine collection method Clean Catch White Blood Count January 30, 2015 12:15pm 7.85 10^3uL N 4.0-11.0 Blood Culture Peripheral-:Lab Indicates After Collectio October 16, 2014 9:54am No Growth in 5 days Gram Stain Sputum-Expectorated April 02, 2014 4:30am Procedures Procedure Status Date Provider(s) ROUTINE VENIPUNCTURE completed 01/30/15 INSERT TEMP BLADDER CATH completed 01/30/15 COMPREHEN METABOLIC PANEL completed 01/30/15 URINALYSIS AUTO W/O SCOPE completed 01/30/15 MICROSCOPIC EXAM OF URINE completed 01/30/15 COMPLETE CBC W/AUTO DIFF WBC completed 01/30/15 EMERGENCY DEPT VISIT completed 01/30/15 Encounters Encounter Location Date/Time Registered Emergency Room [facility] 02/10/15 1:11am Departed Emergency Room [facility] 01/30/15 11:08am Recent Diagnosis
--- OUTSIDE RECORDS SUMMARY | 2016-09-24 12:28 | XMS REPORT | Continuity of Care Document ---
Author Author [facility] Address Unknown Phone Unavailable Allergies Active Description Code Type Severity Reaction Onset Reported/Identified Relationship to Patient Clinical Status Yes codeine [id number] Drug Allergy Unknown N/A 02/10/2015 Yes lisinopril [id number] Drug Allergy Unknown N/A 02/10/2015 Yes methotrexate [id number] Drug Allergy Unknown N/A 02/10/2015 Yes Penicillins [id number] Drug Allergy Unknown N/A 02/10/2015 Yes Terazosin [id number] Drug Allergy Unknown N/A 02/10/2015 Yes valproic acid [id number] Drug Allergy Unknown N/A 02/10/2015 Medications Problems Date Dx Coded Attending Type Code Diagnosis Diagnosed By 09/27/2013 LOPEZ HUDSON MD Ot 564.00 09/27/2013 LOPEZ HUDSON MD R Ot 788.20 09/27/2013 LOPEZ HUDSON MD Ot 789.00 01/16/2014 ALYSSA HERNANDEZ, SHOSHANA Trinidad Ot 491.21 01/16/2014 SHOSHANA SHAH MD Ot 786.05 01/16/2014 SHOSHANA SHAH MD Ot 799.02 02/26/2014 ADAMA FISHER MD Ot 272.0 02/26/2014 ADAMA FISHER MD Ot 787.91 02/26/2014 ADAMA FISHER MD Ot 788.1 02/26/2014 ADAMA FISHER MD Ot 788.20 04/04/2014 WINSTON HERNANDEZ, ELLIOTT Blackmon Ot 038.9 04/04/2014 ELLIOTT MONTERO MD Ot 244.9 04/04/2014 WINSTON HERNANDEZ, ELLIOTT Blackmon Ot 250.02 04/04/2014 ELLIOTT MONTERO MD Ot 272.4 04/04/2014 WINSTON HERNANDEZ, ELLIOTT P Ot 296.80 04/04/2014 ELLIOTT MONTERO MD P Ot 327.23 04/04/2014 ELLIOTT MONTERO MD Ot 338.29 04/04/2014 WINSTON HERNANDEZ, ELLIOTT P Ot 401.9 04/04/2014 WINSTON HERNANDEZ, ELLIOTT P Ot 423.9 04/04/2014 WINSTON HERNANDEZ, ELLIOTT P Ot 486 04/04/2014 WINSTON HERNANDEZ, ELLIOTT P Ot 491.21 04/04/2014 WINSTON HERNANDEZ, ELLIOTT P Ot 518.81 04/04/2014 WINSTON HERNANDEZ, ELLIOTT P Ot 530.81 04/04/2014 WINSTON HERNANDEZ, ELLIOTT P Ot 564.00 04/04/2014 WINSTON HERNANDEZ, ELLIOTT P Ot 600.00 04/04/2014 WINSTON HERNANDEZ, ELLIOTT P Ot 710.2 04/04/2014 WINSTON HERNANDEZ, ELLIOTT P Ot 714.0 04/04/2014 WINSTON HERNANDEZ, ELLIOTT P Ot 995.91 04/04/2014 WINSTON HERNANDEZ, ELLIOTT P Ot V58.65 04/04/2014 WINSTON HERNANDEZ, ELLIOTT P Ot V58.66 04/04/2014 WINSTON HERNANDEZ, ELLIOTT P Ot V58.67 05/03/2014 ALYSSA HERNANDEZ, SHOSHANA Trinidad Ot 799.02 05/03/2014 MICHAELLE DO, TOM M Ot 250.00 05/03/2014 MICHAELLE DO, TOM M Ot 401.9 05/03/2014 MICHAELLE DO, TOM M Ot 496 05/03/2014 MICHAELLE DO, TOM M Ot 787.02 05/23/2014 MICHAELLE DO, TOM M Ot 250.00 05/23/2014 MICHAELLE DO, TOM M Ot 401.9 05/23/2014 MICHAELLE DO, TOM M Ot 496 05/23/2014 MICHAELLE DO, TOM M Ot 787.02 10/16/2014 MICHAELLE DO, TOM M Ot 038.9 10/16/2014 MICHAELLE DO, TOM M Ot 246.9 10/16/2014 MICHAELLE DO, TOM M Ot 250.00 10/16/2014 MICHAELLE DO, TOM M Ot 401.9 10/16/2014 MICHAELLE DO, TOM M Ot 486 10/16/2014 MICHAELLE DO, TOM M Ot 496 10/16/2014 MICHAELLE DO, TOM M Ot 780.60 10/16/2014 MICHAELLE DO, TOM M Ot 786.05 10/16/2014 MICHAELLE DO, TOM M Ot 995.91 10/16/2014 MICHAELLE DO, TOM M Ot V58.67 12/14/2014 MICHAELLE DO, TOM M Ot 038.9 12/14/2014 MICHAELLE DO, TOM M Ot 486 12/14/2014 MICHAELLE DO, TOM M Ot 995.91 01/24/2015 MICHAELLE DO, TOM M Ot 250.00 01/24/2015 MICHAELLE DO, TOM M Ot 401.9 01/24/2015 MICHAELLE DO, TOM M Ot 496 01/24/2015 MICHAELLE DO, TOM M Ot 787.02 08/29/2015 MICHAELLE DO, TOM M Ot 038.9 08/29/2015 MICHAELLE DO, TOM M Ot 486 08/29/2015 MICHAELLE DO, TOM M Ot 995.91 08/30/2015 MICHAELLE DO, TOM M Ot 038.9 08/30/2015 MICHAELLE DO, TMO M Ot 486 08/30/2015 MICHAELLE DO, TOM M Ot 995.91 09/15/2015 MICHAELLE DO, TOM M Ot 038.9 SEPTICEMIA NOS 09/15/2015 MICHAELLE DO, TOM M Ot 486 PNEUMONIA, ORGANISM NOS 09/15/2015 MICHAELLE DO, TOM M Ot 995.91 SEPSIS 09/16/2015 MICHAELLE DO, TOM M Ot 038.9 SEPTICEMIA NOS 09/16/2015 MICHAELLE DO, TOM M Ot 486 PNEUMONIA, ORGANISM NOS 09/16/2015 MICHAELLE DO, TOM M Ot 995.91 SEPSIS 09/20/2015 MICHAELLE DO, OTM M Ot 038.9 SEPTICEMIA NOS 09/20/2015 MICHAELLE DO, TOM M Ot 486 PNEUMONIA, ORGANISM NOS 09/20/2015 MICHAELLE DO, TOM M Ot 995.91 SEPSIS 09/20/2015 MICHAELLE DO, TOM M Ot 038.9 SEPTICEMIA NOS 09/20/2015 MICHAELLE DO, TOM M Ot 486 PNEUMONIA, ORGANISM NOS 09/20/2015 MICHAELLE DO, TOM M Ot 995.91 SEPSIS Procedures Results Encounters ACCT No. Visit Date/Time Discharge Status Pt. Type Provider Facility Loc./Unit Complaint [id number] 02/10/2015 01:11:00 2014 03:19:00 [id number] 01/30/2015 11:08:00 2014 13:49:00 DIS Emergency SANTHOSH HERNANDEZ, [facility] ED [id number] 10/16/2014 14:05:00 2014 23:59:59 CLS Outpatient [facility] EMS [id number] 10/16/2014 09:15:00 2014 15:00:00 DIS Emergency [facility] ED [id number] 04/01/2014 11:30:00 2013 15:20:00 DIS Inpatient WINSTON HERNANDEZ, [facility] MED/SURG [id number] 04/01/2014 08:35:00 2013 23:59:59 CLS Outpatient [facility] EMS [id number] 02/26/2014 18:40:00 2013 22:00:00 DIS Emergency NATALIA HERNANDEZ, [facility] ED [id number] 01/16/2014 16:22:00 2013 23:59:59 CLS Outpatient ALYSSA HERNANDEZ, [facility] EMS [id number] 01/16/2014 11:48:00 2013 16:30:00 DIS Emergency ALYSSA HERNANDEZ, [facility] ED [id number] 09/26/2013 22:05:00 2013 00:21:00 DIS Emergency TRISTAN HERNANDEZ, [facility] ED
--- OUTSIDE RECORDS SUMMARY | 2016-09-24 12:28 | XMS REPORT | Continuity of Care Document ---
Author Author [facility]IVE HCIS Organization [facility]IS Address Unknown Phone Unavailable Care Team Providers Care Microbiology Lab Technician Name Role Phone RAMA CHASE MD Primary Care Physician [phone] Insurance Providers Payer Name Policy Number Subscriber Name Relationship [facility] Administration [id number] Alo Romero 18 Self / Same As Patient Medicare A And B [id number] Alo Romero 18 Self / Same As Patient Problems Medical Problems Problem Onset Date Status [...] Sepsis 04/01/2014 Active COPD exacerbation 04/04/2014 Active Medications Medication Dose Route Sig Days/Qty Instructions Order Date Discontinued Date Status Abatacept 125 Mg SQ Weekly 09/26/13 Active Albuterol Sulfate 1.25 Mg RESPIRATORY (INHALATION) 09/26/13 [...] ORAL FOUR TIMES DAILY PRN PAIN 09/26/13 Active Hypromellose 15 Ml OPTHALMIC 09/26/13 04/01/14 Discontinued [...] Aspirin 81 Mg ORAL DAILY 09/26/13 Active [place] 3 Polyunsat Fatty Acids 1,000 Mg ORAL [...] TWICE A DAY WITH MEALS Active Prednisone 10 Mg GT DAILY 10/16/14 Active Social History No social history. Hospital Discharge Instructions No hospital discharge instructions. Plan of Care Discharge Date 10/16/14 3:00pm Prescriptions See Medications Section Functional Status No functional status results. Allergies, Adverse Reactions, Alerts Allergen Type Severity Reaction Status Last Updated Penicillin Allergy Unknown Active 09/26/13 Lisinopril Allergy Unknown Active 09/26/13 Codeine Allergy Unknown Active 09/26/13 Valproic Acid Allergy Unknown Active 09/26/13 Methotrexate Allergy Unknown Active 09/26/13 Terazosin Allergy Unknown Active 09/26/13 Immunizations No immunization records. Vital Signs Acute Vital Signs Vital Response Date/Time Temperature (Fahrenheit) 101.5 Pulse 102 bpm Respirations 28 Results Test Source Date Result Interp. Ref. Range Comments Influenza Virus Type B Antibody October 16, 2014 10:20am Negative Influenza Virus Type A Antibody October 16, 2014 10:20am Negative Absolute Band Neutrophils April 03, 2014 5:10am 0.4 # Collected by nurse? N Activated Partial Thromboplast Time October 16, 2014 9:25am 24.1 SEC L 24.9- 35.9 Alanine Aminotransferase (ALT/SGPT) October 16, 2014 9:25am 29 U/L L 30-65 Albumin October 16, 2014 9:25am 3.9 g/dL N 3.4-5.0 Albumin/Globulin Ratio October 16, 2014 9:25am 1.344 N 1.1-1.8 Alkaline Phosphatase October 16, 2014 9:25am 67 U/L N 38-126 Rainer Test April 01, 2014 9:35am Pos Anion Gap October 16, 2014 9:25am 11.8 MEQ/L N 3-15 Arterial Blood Base Excess October 16, [...] N 7.35-7.45 All ABG Results called to vicenteshahana read back the results. Called by Suyapa Junior at [id number] Aspartate Amino Transf (AST/SGOT) October 16, 2014 9:25am 22 U/L N 15-37 B-Type Natriuretic Peptide April 01, 2014 8:13am 9 PG/ML N 0-100 Collected by nurse? NComment to Watch Adjuster: Use blood in lab. BUN/Creatinine Ratio October 16, 2014 9:25am 18 N 10-20 Band Neutrophils % April 03, 2014 5:10am 4 % N 0-6 Collected by nurse? N Basophils # (Auto) October 16, 2014 9:25am 0.0 10^3uL Basophils % (Manual) April 03, 2014 5:10am 0 % N 0-2 Collected by nurse? N Basophils (%) (Auto) October 16, 2014 9:25am 0 % N 0-2 Blood Gas Liter Flow October 16, 2014 9:39am 12.0 LPM Blood Gas Puncture Site October 16, 2014 9:39am Left radial Blood Morphology Comment April 03, 2014 5:10am Normal NORMAL Collected by nurse? N Blood Urea Nitrogen October 16, 2014 9:25am 16 mg/dL N 7-18 C-Reactive Protein October 16, 2014 9:25am 2.00 mg/dL H 0.0-0.9 Calcium Level October 16, 2014 9:25am 9.1 mg/dL N 8.8-10.8 Calcium/Ionized Calcium Ratio October 16, 2014 9:25am 4.1 mg/dL N 3.8-4.6 Calculated Osmolality October 16, 2014 9:25am 255 mosm/L L 280-300 Carbon Dioxide Level October 16, 2014 9:25am 28 mmol/L N 22-29 Chloride Level October 16, 2014 9:25am 95 mmol/L L 98-108 Creatinine October 16, 2014 9:25am 0.88 mg/dL N 0.8-1.5 D-Dimer October 16, 2014 9:25am 4.89 ug/mL PH 0.00-0.41 [facility] [place] [facility]. Called by Ngozi Browning at 1002 Differential Total Cells Counted April 03, 2014 5:10am 100 Collected by nurse? N Eosinophils # April 03, 2014 5:10am 0.3 # Collected by nurse? N Eosinophils # (Auto) October 16, 2014 9:25am 0.3 10^3uL Eosinophils % (Manual) April 03, 2014 5:10am 3 % N 0-4 Collected by nurse? N Eosinophils (%) (Auto) October 16, 2014 9:25am 3 % N 0-4 Estimat Glomerular Filtration Rate October 16, 2014 9:25am 103.6 Estimated GFR (Non- October 16, 2014 9:25am 85.6 Glucose Level October 16, 2014 9:25am 120 mg/dL DH 70-110 Hematocrit October 16, 2014 9:25am 40.00 % N 39.00-50.00 Hemoglobin October 16, 2014 9:25am 13.3 g/dL L 13.5-17.0 Hemoglobin A1c April 01, 2014 8:13am 10.1 % H 4.8-6.0 Collected by nurse? NComment to Watch Adjuster: Use blood in lab. Lactic Acid Level April 01, 2014 9:12am 2.0 mEq/L 0.5-2.2 Lymphocytes # April 03, 2014 5:10am 3.7 # Collected by nurse? N Lymphocytes # (Auto) October 16, 2014 9:25am 2.4 X10^3 Lymphocytes % (Manual) April 03, 2014 5:10am 38 % N 20-46 Collected by nurse? N Lymphocytes (%) (Auto) October 16, 2014 9:25am 20 % N 20-46 Mean Corpuscular Hemoglobin October 16, 2014 9:25am 26.5 PG N 26.0-34.0 Mean Corpuscular Hemoglobin Concent October 16, 2014 9:25am 33.3 g/dL N 31.0 -37.0 Mean Corpuscular Volume October 16, 2014 9:25am 80 FL N 80-100 Mean Platelet Volume October 16, 2014 9:25am 8.7 FL N 6.0-9.5 Monocytes # April 03, 2014 5:10am 0.7 # Collected by nurse? N Monocytes # (Auto) October 16, 2014 9:25am 0.5 X10^3 Monocytes % (Manual) April 03, 2014 5:10am 8 % N 3-11 Collected by nurse? N Monocytes (%) (Auto) October 16, 2014 9:25am 4 % N 3-11 Neutrophils # April 03, 2014 5:10am 4.6 # Collected by nurse? N Neutrophils # (Auto) October 16, 2014 9:25am 8.5 X10^3 Neutrophils (%) (Auto) October 16, 2014 9:25am 72 % H 51-67 Platelet Count October 16, 2014 9:25am 296 10^3uL N 150-450 Potassium Level October 16, 2014 9:25am 4.2 mmol/L N 3.5-5.1 Prothromb Time International Ratio October 16, 2014 9:25am 1.1 N 0.8-1.4 Prothrombin Time October 16, 2014 9:25am 14.2 SEC N 11.9-14.2 Red Blood Count October 16, 2014 9:25am 5.02 10^6uL N 4.50-5.50 Red Cell Distribution Width October 16, 2014 9:25am 15.8 % H 11.8-15.6 Segmented Neutrophils % April 03, 2014 5:10am 47 % L 51-67 Collected by nurse? N Sodium Level October 16, 2014 9:25am 131 mmol/L L 135-150 Thyroid Stimulating Hormone (TSH) October 16, 2014 9:25am 2.53 uIU/mL DN 0.46-4.68 Total Bilirubin October 16, 2014 9:25am 0.6 mg/dL N 0.1-1.0 Total Protein October 16, 2014 9:25am 6.8 g/dL N 6.4-8.5 Troponin I April 01, 2014 8:13am 0.012 ng/mL N 0.010-0.080 Collected by nurse? NComment to Watch Adjuster: Use blood in lab. Urine Bacteria April 01, 2014 10:35am None seen /HPF Urine collection method Clean Catch Urine Bilirubin October 16, 2014 9:32am Negative Negative Urine collection method Catheter Urine Blood April 01, 2014 10:35am 2+ H Negative Urine collection method Clean Catch Urine Clarity October 16, 2014 9:32am Clear Urine collection method Catheter Urine Collection Type October 16, 2014 9:32am Catheter Urine collection method Catheter Urine Color October 16, 2014 9:32am Yellow Urine collection method Catheter Urine Glucose (UA) October 16, 2014 9:32am Negative Negative Urine collection method Catheter Urine Ketones October 16, 2014 9:32am Negative Negative Urine collection method Catheter Urine Leukocyte Esterase October 16, 2014 9:32am Negative Negative Urine collection method Catheter Urine Nitrite October 16, 2014 9:32am Negative Negative Urine collection method Catheter Urine Protein October 16, 2014 9:32am Negative Negative Urine collection method Catheter Urine RBC April 01, 2014 10:35am 20-50 /HPF Urine collection method Clean Catch Urine RBC (Auto) October 16, 2014 9:32am Negative Negative Urine collection method Catheter Urine Specific [place] October 16, 2014 9:32am 1.010 1.005-1.030 Urine collection method Catheter Urine Squamous Epithelial Cells April 01, 2014 10:35am None /LPF Urine collection method Clean Catch Urine Urobilinogen October 16, 2014 9:32am 0.2 mg/dL 0.2-1.0 Urine collection method Catheter Urine WBC April 01, 2014 10:35am 0-2 /HPF Urine collection method Clean Catch Urine pH October 16, 2014 9:32am 7.0 5.0 - 8.0 Urine collection method Catheter Volume Urine Centrifuged April 01, 2014 10:35am 12 ml Urine collection method Clean Catch White Blood Count October 16, 2014 9:25am 11.81 10^3uL H 4.0-11.0 Blood Culture Peripheral-:Lab Indicates After Collectio October 16, 2014 9:54am No Growth in 5 days Gram Stain Sputum-Expectorated April 02, 2014 4:30am Procedures Procedure Status Date Provider(s) ROUTINE VENIPUNCTURE completed 10/16/14 WITHDRAWAL OF ARTERIAL BLOOD completed 10/16/14 INSERT TEMP BLADDER CATH completed 10/16/14 CHEST X-RAY 1 VIEW FRONTAL completed 10/16/14 CT ANGIOGRAPHY CHEST completed 10/16/14 X-RAY EXAM OF ABDOMEN completed 10/16/14 COMPREHEN METABOLIC PANEL completed 10/16/14 URINALYSIS AUTO W/O SCOPE completed 10/16/14 BLOOD GASES ANY COMBINATION completed 10/16/14 ASSAY THYROID STIM HORMONE completed 10/16/14 COMPLETE CBC W/AUTO DIFF WBC completed 10/16/14 FIBRIN DEGRADATION QUANT completed 10/16/14 PROTHROMBIN TIME completed 10/16/14 THROMBOPLASTIN TIME PARTIAL completed 10/16/14 C-REACTIVE PROTEIN completed 10/16/14 BLOOD CULTURE FOR BACTERIA completed 10/16/14 INFLUENZA A/B AG EIA completed 10/16/14 ELECTROCARDIOGRAM TRACING completed 10/16/14 MEASURE BLOOD OXYGEN LEVEL completed 10/16/14 HYDRATE IV INFUSION ADD-ON completed 10/16/14 THER/PROPH/DIAG IV INF INIT completed 10/16/14 THER/DIAG CONCURRENT INF completed 10/16/14 EMERGENCY DEPT VISIT completed 10/16/14 completed 10/16/14 completed 10/16/14 completed 10/16/14 Encounters Encounter Location Date/Time Registered Clinic [facility] 10/16/14 2:05pm Departed Emergency Room [facility] 10/16/14 9:15am
--- OUTSIDE RECORDS SUMMARY | 2016-09-24 12:29 | XMS REPORT | Continuity of Care Document ---
Author Author [facility] HCIS Organization [facility]IS Address Unknown Phone Unavailable Care Team Providers Care Wire Spiral Binder Name Role Phone RAMA CHASE MD Primary Care Physician [phone] Insurance Providers Payer Name Policy Number Subscriber Name Relationship [facility] Administration [id number] Alo Romero 18 Self / Same As Patient Chief Complaint and Reason for Visit Chief Complaint Genitourinary Complaint Reason for Visit [id number] Problems Medical Problems Problem Onset Date Status [...] exacerbation 04/04/2014 Active Urinary retention Unknown Active Medications Medication Dose Route Sig [...] Aspirin 81 Mg ORAL DAILY 09/26/13 Active [place] 3 Polyunsat Fatty Acids 1,000 Mg ORAL [...] Mg ORAL TWICE A DAY 01/30/15 Active Social History No social history. Hospital Discharge Instructions No hospital discharge instructions. Plan of Care Discharge Date 01/30/15 1:49pm Disposition 01 HOME OR SELF-CARE Condition at Discharge Stable Prescriptions See Medications Section Referrals RAMA CHASE MD Additional Instructions/Education barry cath care instructions Follow up with a urologist at the DC Return if symptoms worsen Some of your test results may not [...] worrisome symptoms. * Emergency Department phone number: [phone], x [phone]* MEDICAL RECORD If you need copies of your X-rays, call [phone] x [phone]. If you need copies of [...] SERVICE BILLING CONSTITUTION PARTY Emergency Room Services [facility] Physician Services [facility] X-rays [place] [facility] Patients will receive bills for services from the appropriate provider. If you have any questions about your [facility] bill, our staff will be happy to assist you. Please call [phone], and ask for the billing department. THANK YOU for choosing [facility] as your emergency care provider! [...] Vital Signs Vital Response Date/Time Temperature (Fahrenheit) 98.5 Pulse 84 bpm Respirations 20 Height 6 ft 11 in Weight 250 lb Body Mass Index 25.0 kg/m^2 Results Test Source Date Result Interp. [...] N 0-100 Collected by nurse? NComment to Learning Solutions Specialist: Use blood in lab. BUN/Creatinine Ratio [...] PH 0.00-0.41 Results called to [place] [facility] read back the results. Called by Ngozi [...] H 4.8-6.0 Collected by nurse? NComment to Learning Solutions Specialist: Use blood in lab. Influenza Virus [...] N 0.010-0.080 Collected by nurse? NComment to Learning Solutions Specialist: Use blood in lab. Urine Bacteria January 30, 2015 12:00pm None seen /HPF Urine collection method Catheter Urine Bilirubin January 30, 2015 12:00pm Negative Negative Urine collection method Catheter Urine Blood April 01, 2014 10:35am 2+ H Negative Urine collection method Clean Catch Urine Clarity January 30, 2015 12:00pm Clear Urine collection method Catheter Urine Collection Type January 30, 2015 12:00pm Clean catch Urine collection method Catheter Urine Color January 30, 2015 12:00pm Yellow Urine collection method Catheter Urine Glucose (UA) January 30, 2015 12:00pm 2+ H Negative Urine collection method Catheter Urine Ketones January 30, 2015 12:00pm Negative Negative Urine collection method Catheter Urine Leukocyte Esterase January 30, 2015 12:00pm Negative Negative Urine collection method Catheter Urine Mucus January 30, 2015 12:00pm 1+ Urine collection method Catheter Urine Nitrite January 30, 2015 12:00pm Negative Negative Urine collection method Catheter Urine Protein January 30, 2015 12:00pm 2+ H Negative Urine collection method Catheter Urine RBC January 30, 2015 12:00pm 2-5 /HPF Urine collection method Catheter Urine RBC (Auto) January 30, 2015 12:00pm Trace-intact H Negative Urine collection method Catheter Urine Specific [place] January 30, 2015 12:00pm 1.015 1.005-1.030 Urine collection method Catheter Urine Squamous Epithelial Cells January 30, 2015 12:00pm None /LPF Urine collection method Catheter Urine Urobilinogen January 30, 2015 12:00pm 0.2 mg/dL 0.2-1.0 Urine collection method Catheter Urine WBC January 30, 2015 12:00pm None seen /HPF Urine collection method Catheter Urine pH January 30, 2015 12:00pm 7.0 5.0 - 8.0 Urine collection method Catheter Volume Urine Centrifuged January 30, 2015 12:00pm 12 ml Urine collection method Catheter White Blood Count January 30, 2015 12:15pm 7.85 10^3uL N 4.0-11.0 Blood Culture Peripheral-:Lab Indicates After Collectio October 16, 2014 9:54am No Growth in 5 days Gram Stain Sputum-Expectorated April 02, 2014 4:30am Procedures No known history of procedures. Encounters Encounter Location Date/Time Departed Emergency Room [facility] 01/30/15 11:08am Recent Diagnosis
--- OUTSIDE RECORDS SUMMARY | 2016-09-24 12:31 | XMS REPORT | Continuity of Care Document ---
Author Author [facility] Address Unknown Phone Unavailable Allergies Active Description Code Type Severity Reaction Onset Reported/Identified Relationship to Patient Clinical Status Yes codeine [id number] Drug Allergy Unknown N/A 02/10/2015 Yes lisinopril [id number] Drug Allergy Unknown N/A 02/10/2015 Yes methotrexate [id number] Drug Allergy Unknown N/A 02/10/2015 Yes Penicillins [id number] Drug Allergy Unknown N/A 02/10/2015 Yes Terazosin [id number] Drug Allergy Unknown N/A 02/10/2015 Yes valproic acid [id number] Drug Allergy Unknown N/A 02/10/2015 Medications Problems [...] TOM M Ot 038.9 08/30/2015 MICHAELLE DO, TOM M Ot 486 08/30/2015 MICHAELLE DO, TOM M Ot 995.91 09/15/2015 MICHAELLE DO, TOM M Ot 038.9 SEPTICEMIA NOS 09/15/2015 MICHAELLE DO, TOM M Ot 486 PNEUMONIA, ORGANISM NOS 09/15/2015 MICHAELLE DO, TOM M Ot 995.91 SEPSIS 09/16/2015 MICHAELLE DO, TOM M Ot 038.9 SEPTICEMIA NOS 09/16/2015 MCIHAELLE DO, TOM M Ot 486 PNEUMONIA, ORGANISM [...] Status Pt. Type Provider Facility Loc./Unit Complaint [id number] 02/10/2015 01:11:00 2014 03:19:00 DIS [id number] 01/30/2015 11:08:00 2014 13:49:00 DIS Emergency SANTHOSH HERNANDEZ, MAURIC[facility] ED [id number] 10/16/2014 14:05:00 2014 23:59:59 CLS Outpatient [facility] [id number] 10/16/2014 09:15:00 2014 15:00:00 DIS Emergency [facility] ED [id number] 04/01/2014 11:30:00 2013 15:20:00 DIS Inpatient WINSTON HERNANDEZ, [facility] MED/SURG [id number] 04/01/2014 08:35:00 2013 23:59:59 CLS Outpatient [facility] EMS [id number] 02/26/2014 18:40:00 2013 22:00:00 DIS Emergency NATALIA HERNANDEZ, [facility] ED [id number] 01/16/2014 16:22:00 2013 23:59:59 CLS Outpatient ALYSSA HERNANDEZ, [facility] EMS [id number] 01/16/2014 11:48:00 2013 16:30:00 DIS Emergency ALYSSA HERNANDEZ, [facility] ED [id number] 09/26/2013 22:05:00 2013 00:21:00 DIS Emergency TRISTAN HERNANDEZ, [facility] ED
--- OUTSIDE RECORDS SUMMARY | 2016-09-24 12:31 | XMS REPORT | Continuity of Care Document ---
Author Author [facility] HCIS Organization [facility] HCIS Address Unknown Phone Unavailable Care Team Providers Care Oracle Pl Sql Developer Name Role Phone RAMA CHASE MD Primary Care Physician [phone] Insurance Providers Payer Name Policy Number Subscriber Name Relationship [facility] Administration [id number] Alo Romero 18 Self / Same As Patient Medicare A And B [id number] Alo Romero 18 Self / Same As [...] Aspirin 81 Mg ORAL DAILY 09/26/13 Active [place] 3 Polyunsat Fatty Acids 1,000 Mg ORAL [...] N 0-100 Collected by nurse? NComment to Recreation Supervisor: Use blood in lab. BUN/Creatinine Ratio October [...] PH 0.00-0.41 [facility] [place] [facility]. Called by Ngozi [...] H 4.8-6.0 Collected by nurse? NComment to Recreation Supervisor: Use blood in lab. Lactic Acid Level [...] N 0.010-0.080 Collected by nurse? NComment to Recreation Supervisor: Use blood in lab. Urine Bacteria April [...] Negative Urine collection method Catheter Urine Specific [place] October 16, 2014 9:32am 1.010 1.005-1.030 Urine [...] 10/16/14 Encounters Encounter Location Date/Time Registered Clinic [facility] 10/16/14 2:05pm Departed Emergency Room [facility] 10/16/14 9:15am
--- OUTSIDE RECORDS SUMMARY | 2016-09-24 12:32 | XMS REPORT | Continuity of Care Document ---
Author Author [facility] HCIS Organization [facility]IS Address Unknown Phone Unavailable Care Team Providers Care Safe And Vault Service Mechanic Name Role Phone RAMA CHASE MD Primary Care Physician [phone] Insurance Providers Payer Name Policy Number Subscriber Name Relationship [facility] Administration [id number] Alo Romero 16 Self / Same As Patient Chief Complaint and Reason for Visit Chief Complaint Genitourinary Complaint Reason for Visit [id number] Problems Medical Problems Problem Onset Date Status [...] Aspirin 81 Mg ORAL DAILY 09/26/13 Active [place] 3 Polyunsat Fatty Acids 1,000 Mg ORAL [...] Follow up with a urologist at the OR Return if symptoms worsen Some of your [...] worrisome symptoms. * Emergency Department phone number: [phone], x [phone]* MEDICAL RECORD If you need copies of your X-rays, call [phone] x [phone]. If you need copies of [...] the billing parties for services. SERVICE BILLING DEMOCRAT Emergency Room Services [facility] Physician Services [facility] X-rays [place] [facility] Patients will receive bills for services from the appropriate provider. If you have any questions about your [facility] bill, our staff will be happy to assist you. Please call [phone], and ask for the billing department. THANK YOU for choosing [facility] as your emergency care provider! Functional Status [...] N 0-100 Collected by nurse? NComment to Media Professional: Use blood in lab. BUN/Creatinine Ratio January [...] PH 0.00-0.41 Results called to [place] [facility] read back the results. Called by Ngozi [...] H 4.8-6.0 Collected by nurse? NComment to Media Professional: Use blood in lab. Influenza Virus Type [...] N 0.010-0.080 Collected by nurse? NComment to Media Professional: Use blood in lab. Urine Bacteria January [...] Negative Urine collection method Catheter Urine Specific [place] January 30, 2015 12:00pm 1.015 1.005-1.030 Urine [...] Encounters Encounter Location Date/Time Departed Emergency Room [facility] 01/30/15 11:08am Recent Diagnosis
--- OUTSIDE RECORDS SUMMARY | 2016-09-24 12:32 | XMS REPORT | Continuity of Care Document ---
Author Author [facility] HCIS Organization [facility] HCIS Address Unknown Phone Unavailable Care Team Providers Care Weave Defect Charting Clerk Name Role Phone RAMA CHASE MD Primary Care Physician [phone] Insurance Providers Payer Name Policy Number Subscriber Name Relationship [facility] Administration [id number] Alo Romero 16 Self / Same As Patient Chief Complaint and Reason for Visit Chief Complaint Genitourinary Complaint Reason for Visit Urinary tract infection [id number] Problems Medical Problems Problem Onset Date Status [...] Aspirin 81 Mg ORAL DAILY 09/26/13 Active [place] 3 Polyunsat Fatty Acids 1,000 Mg ORAL [...] worrisome symptoms. * Emergency Department phone number: [phone], x [phone]* MEDICAL RECORD If you need copies of your X-rays, call [phone] x [phone]. If you need copies of [...] the billing parties for services. SERVICE BILLING LIBERTARIAN Emergency Room Services [facility] Physician Services [facility] X-rays [facility] Patients will receive bills for services from the appropriate provider. If you have any questions about your [facility] bill, our staff will be happy to assist you. Please call [phone], and ask for the billing department. THANK YOU for choosing [facility] as your emergency care provider! Functional Status [...] N 0-100 Collected by nurse? NComment to Chief Revenue Officer: Use blood in lab. BUN/Creatinine Ratio January [...] H 4.8-6.0 Collected by nurse? NComment to Chief Revenue Officer: Use blood in lab. Influenza Virus Type [...] N 0.010-0.080 Collected by nurse? NComment to Chief Revenue Officer: Use blood in lab. Urine Bacteria February [...] Urine collection method Clean Catch Urine Specific [place] February 10, 2015 1:35am 1.020 1.005-1.030 Urine [...] Encounters Encounter Location Date/Time Registered Emergency Room [facility] 02/10/15 1:11am Departed Emergency Room [facility] 01/30/15 11:08am Recent Diagnosis
--- NOTE | 2016-09-24 12:42 | ERPDOC ---
Departure Disposition Decision Date: Sep 24, 2016 Disposition Decision Time: 14:58 Disposition: 01 DISCHARGED HOME, SELF-CARE Impression Impression Impression: Primary Impression: Urinary tract infection Urinary tract infection type: acute cystitis Hematuria presence: without hematuria Qualified Codes: N30.00 - Acute cystitis without hematuria Severity: Moderate Condition: Stable Seen By: Mid-level only Referrals: JAYCE MEDEIROS MD (Family) Patient Instructions: Urinary Tract Infection in Men (ED) Problems/Meds/Labs Reviewed?: Yes Medications reviewed and manag: Yes Additional Instructions: Please follow up with your psychiatrist tomorrow as scheduled at the [facility] in [place]. If you have any further concerns regarding admission to [facility] you may call them directly at [phone] extension [phone]. Please give Cefepime 1gm IM BID x 7 days. Follow up with his primary care provider for reevaluation if needed. Follow up care ordered?: Yes Mental Status: Alert Scripts Cefepime HCl (Cefepime HCl) 1 Gm Vial 1 G IM BID, #14 G 0 Refills Prov: NEW SOTO Stefany VERTICAL LATHE OPERATOR 09/24/16 HPI - Psychosocial General Chief Complaint: Suicide Ideation/Attempt Stated Complaint: SUICIDAL Time Seen by MD: 12:27 Source: patient Exam Limitations: no limitations HPI - Psychosocial Initial Comments He presents to ER today from [facility]. Is brought in today by EMS. I did speak with his nurse Nina at the [facility]. She states that last night he was very anxious and was making statements of wanting to harm himself. He had put on his call light and when they did not answer quickly he scratched up the side of his face. He does have bruising on the left side of his face. Today she asked him about this and he states that he was just mad because no one was paying him any attention. He did state that he wanted to and was going to take his butter knife at breakfast and stab himself .He also said he was going to pour coffee on himself. He is upset because no one cares about him. [facility] did get an order today to bring him here to ER for evaluation of his SI. Denies any pain or issues/concerns at this time. He had been admitted to [facility] in March of 2016 for SI. He [facility] [place] [facility] time but he was denying any further SI and his did not want him to go to the [facility] so he was allowed to return to the [place]. He currently denies any SI or any thoughts of wanting to harm anyone else. Occurred At: home Onset: Gradual Duration: 12-24 hrs Severity: moderate Associated Symptoms: anxiety, suicidal ideation, DENIES: impaired concentration , ingestion, injury, insomnia Hx of Similar Symptoms: No Allergies: Coded Allergies: Penicillins (Verified Allergy, Unknown, 03/13/16) lisinopril (Verified Allergy, Unknown, 09/24/16) methotrexate (Verified Allergy, Unknown, 09/24/16) quetiapine (Verified Allergy, Unknown, 09/24/16) terazosin (Verified Allergy, Unknown, 09/24/16) valproic acid (Verified Allergy, Unknown, 09/24/16) Past History Past Medical History Metabolic: hypertension, hypothyroidism Cardiac: CHF Hx Echocardiogram: No Neurological: CVA Psychological: depression Surgical History General: other Family History Family PMH: FOUND: other Vaccines Hx Influenza Vaccination: No Hx Pneumococcal Vaccination: Yes Social History Smoking Status: Never smoker Does patient use chewing tobac: No Second Hand Exposure: No Substance Use Type: does not use Alcohol Intake: none Marital Status: Single Housing: intermediate Service: No Occupational Hazard: No Review of Systems Constitutional Constitutional: DENIES: chills, dizziness, fatigue, fever, weakness Eyes Vision: DENIES: blurring, double vision ENMT Ears: DENIES: drainage, pain Sinuses: DENIES: congestion, rhinorrhea Mouth/Throat: DENIES: painful swallowing, scratchy throat, sore throat Cardiovascular Cardiac: DENIES: chest pain, orthopnea Rhythm/Rate: DENIES: irregular beat, palpitations Pulmonary Respiratory: DENIES: cough, dyspnea, sputum, tachypnea GI Upper Abdomen: DENIES: nausea, pain, vomiting Lower Abdomen: DENIES: constipation, diarrhea, pain Integumentary Skin: DENIES: rash Neurological General: DENIES: headache, numbness, tingling, weakness Physical Exam General General Nourishment: well nourished, well developed, appears stated age, no acute distress, adult General Body Habitus: well groomed Vitals and Pain First Documented Vital Signs Date Time Temp Pulse Resp B/P Pulse Ox O2 Delivery O2 Flow Rate FiO2 4/25/17 12:20 98.0 75 20 136/82 93 Room Air Weight: Kilograms: Height (feet): 5 Height (inches): 9.00 Triage Pain Scale: RN VS reviewed by Provider: Yes Normal Exams: Neck: Full range of motion, without adenopathy, JVD, bruits or thyromegaly Chest/Resp: Clear all phelan, with good airflow, and symmetry bilaterally CV: Regular rate and rhythm, without murmur or gallop, Pulses 2+ all extremities, capillary refill, <2 seconds all ext., no pedal edema noted Abdomen: Bowel sounds positive, soft, non-tender, non-distended, no hepatosplenomegaly, masses or bruits noted Lymphatic: No lymphadenopathy, or lymphedema noted Integumentary: No rashes, hives, or bruising noted Neurologic: Patient is alert, and oriented Psychiatric: Patient exhibits, appropriate attention, emotion and affect Differential Diagnoses Considering: Anxiety, Bipolar, Delirium, Depression, Hallucinations, Acute Psychosis, Suicidal Attempt, Suicidal Ideation Progress Results/Orders Orders Procedure Category Date Status Time EKG EKG 09/24/16 Taken Cbc W/Auto LAB 09/24/16 Complete Diff-Reflex Manual Cmp - Comprehensive LAB 09/24/16 Complete Metabolic UA, LAB 09/24/16 Complete Dip&Micro(Complete) & 13:11 Cefepime (Maxipime) PHA 09/24/16 Complete 13:30 Urine Culture MYLA 09/24/16 In Process 13:30 Cefepime (Maxipime) PHA 09/24/16 Complete 13:45 Lidocaine 1% PHA 09/24/16 Complete (Xylocaine 1% 5 Ml) 14:00 Oxycodone/Apap 10/325 PHA 09/24/16 Complete (Percocet 10/325) 14:15 Lab Results Laboratory Tests Test 09/24/16 12:30 09/24/16 13:02 09/24/16 13:11 09/24/16 17:02 Glucometer 257mg/dL Pending White Blood Count 8.0T/MM3 Red Blood Count 3.84M/MM3 Hemoglobin 12.4GM/DL Hematocrit 37.5% Mean Corpuscular Volume 97.7UM3 Mean Corpuscular Hemoglobin 32.3UUG Mean Corpuscular Hemoglobin Concent 33.1GM/DL RDW Standard Deviation 48.8FL Platelet Count 231T/MM3 Mean Platelet Volume 9.5UM3 Immature Granulocyte % (Auto) 0.5% Neutrophils (%) (Auto) 52.8% Lymphocytes (%) (Auto) 34.9% Monocytes (%) (Auto) 8.0% Eosinophils (%) (Auto) 3.4% Basophils (%) (Auto) 0.4% Absolute Immature Granulocyte (auto 0.04T/MM3 Absolute Neutrophils (auto) 4.2T/MM3 Absolute Lymphocytes (auto) 2.8T/MM3 Absolute Monocytes (auto) 0.6T/MM3 Absolute Eosinophils (auto) 0.3T/MM3 Absolute Basophils (auto) 0.0T/MM3 Turbidity < 20 Sodium Level 139MEQ/L Potassium Level 4.1MEQ/L Chloride Level 93MEQ/L Carbon Dioxide Level 33MEQ/L Anion Gap 13MEQ/L Blood Urea Nitrogen 17.0MG/DL Creatinine 0.8MG/DL Glomerular Filtration Rate Calc 95 BUN/Creatinine Ratio 21RATIO Glucose Level 282MG/DL Calculated Osmolality 280MOSM/KG Calcium Level 9.5MG/DL Total Bilirubin 0.50MG/DL Icterus Index < 2 Aspartate Amino Transf (AST/SGOT) 20U/L Alanine Aminotransferase (ALT/SGPT) 22U/L Alkaline Phosphatase 92U/L Total Protein 7.1G/DL Albumin 3.7G/DL Globulin 3.4G/DL Albumin/Globulin Ratio 1.1RATIO Chemistry Specimen Hemolysis < 15 Urine Collection Type Cleancatch-midstream Urine Color Yellow Urine Turbidity Cloudy Urine pH 6.5 Urine Specific [place] <=1.005 Urine Protein Negative Urine Glucose (UA) 1+ Urine Ketones Negative Urine Blood Trace-intact Urine Nitrite Positive Urine Bilirubin Negative Urine Urobilinogen 0.2EU/DL Urine Leukocyte Esterase 3+ Urine RBC 3-5/HPF Urine WBC 50-200/HPF Urine WBC Clumps Moderate Urine Squamous Epithelial Cells 0-5 Urine Bacteria 3+ Urine Culture Indicated Cult reflexed &setup Medications Current ED Medications Cefepime HCl (Maxipime) 1 g O ONCE IM ; Start 09/24/16 at 13:30; Stop 09/24/16 at 13:32; Status DC Cefepime HCl (Maxipime) 1 g O ONCE IM Last administered on 09/24/16t 13:58; Start 09/24/16 at 13:45; Stop 09/24/16 at 13:46; Status DC Sterile Water (Sterile Water) 2 ml O ONCE IM ; Start 09/24/16 at 13:45; Stop at 13:46; Status Cancel Lidocaine HCl (Xylocaine 1% 5 ml) 24 mg O ONCE IJ Last administered on 13:59; Start 09/24/16 at 14:00; Stop 09/24/16 at 14:01; Status DC Oxycodone/ Acetaminophen (Percocet 10/325) 1 tab O ONCE PO Last administered on 09/24/16 14:16; Start 09/24/16 at 14:15; Stop 09/24/16 at 14:16; Status DC Progress Progress Levy from [facility] is down here in the unit to screen patient. He does not meet criteria for admission at this time. He was able to verbalize to Levy that he gets mad and does say things at times that are out of anger. He does state that he lives in the intermediate and he does not have the means to carry out any kind of suicidal plan. He does have close follow up scheduled tomorrow with his psychiatrist and so will encourage him to keep this appointment. They can always contact the [facility] directly at any time for possible admission with any further behavior concerns. Id did talk with his and did offer to contact the [facility] in [place] regarding possible admission to a [facility] sponsored psych facility. She is not agreeable to this as this would mean he would be admitted to [place] or [place]. 1626-Tia RN did contact [facility] as no one has arrived to Er to transport patient back to the facility. [facility] that [facility] contact with the [facility] and are going to pick him up and take him to the ER at the [facility] for evaluation. I did speak with Leora Gasca at [facility]. She states that their facility is contracted to care for Mr Romero by the [place] and they do not feel that they can meet his needs at this time. He is angry with them often and yells at the nurses. He does have behavioral concerns overall that are not being met at their facility. She would like him admitted for evaluation somewhere. I did explain to Leora that we are not able to admit Mr Romero to a facility against his will so he would either need to consent to admission to a psych facility or have a screen that deems he needs to be admitted involuntarily. Our screener here has found to not be a risk. I cannot call the [facility] to make an admission to the facility in [place] as Mr Romero and his have both expressed that this is not what they would want. I also did advise that we cannot transfer to the [facility] from Er to ER as this is an EMTALA violation unless we have acceptance from the VA for transfer. She does report that the dismissal to their facility would still be in place and they can transport to the VA for evaluation independent of this ER as they are just trying to get the VA involved to make sure that he is getting the most appropriate care possible. Dr barber, Dixie Rn, and social media editor in ER and listened to phone call with COSTA at [facility]. 1809- [facility] staff in Er for dismissal. Dixie RN did overhear the local [place] truck driver telling Mr Romero and his that they would be going to [facility] Er for evaluation. I did call and spoke with Mary MURRAY at [facility] and [facility] as well about ER visit here and previous phone conversation with the DON at [facility]. Expected dismissal facility was [facility] with possible transfer to the [facility] for evaluation of need for further care. Transport to [facility] had not been previously discussed and was not made apparent until departure from out ER. They will anticipate patient arrival and will try to get patient to appropriate facility as they are full there with geriatric psych and have a waiting list. NEW SOTO APRN Sep 24, 2016 12:42
--- NOTE | 2016-09-24 12:52 | NUR ---
ANDROID FRAMEWORK DEVELOPER AT BEDSIDE FOR VENIPUNCTURE.
[2016-09-24] MEDS ORDERED: DULO60CA46 PO (12:54)
[2016-09-24] MEDS ORDERED: LEFL10TA16 PO (12:54)
[2016-09-24] MEDS ORDERED: INSU100V13 SQ (12:54)
[2016-09-24] MEDS ORDERED: MULT-245 PO (12:56)
[2016-09-24] MEDS ORDERED: MIRT15TA PO (13:00)
[2016-09-24] MEDS ORDERED: PRAV20TA4 PEG (13:00)
[2016-09-24] MEDS ORDERED: CARV25TA2 PO (13:03)
[2016-09-24] MEDS ORDERED: BUSP10TA3 PO (13:03)
[2016-09-24 13:09] LABS: BASOPHILS % (AUTO) 0.4 % (0-2); EOSINOPHILS # (AUTO) 0.3 T/MM3 (0-0.5); EOSINOPHILS % (AUTO) 3.4 % (0-4); HCT - HEMATOCRIT 37.5 % (41-53); HGB - HEMOGLOBIN 12.4 GM/DL (13.5-17.5); IMMATURE GRANULOCYTE # (AUTO) 0.04 T/MM3 (0.00-0.03); IMMATURE GRANULOCYTE % (AUTO) 0.5 % (0.0-0.5); LYMPHOCYTES # (AUTO) 2.8 T/MM3 (1-4.8); LYMPHOCYTES % (AUTO) 34.9 % (23-45); MEAN CORPUSCULAR HGB 32.3 UUG (26-34); MEAN CORPUSCULAR HGB CONC(MCHC 33.1 GM/DL (31-37); MEAN CORPUSCULAR VOLUME 97.7 UM3 (80-100); MEAN PLATELET VOLUME 9.5 UM3 (9.4-12.4); MONOCYTES # (AUTO) 0.6 T/MM3 (0-0.8); NEUTROPHILS #(AUTO)-ABSOLUTE 4.2 T/MM3 (1.8-7.7); NEUTROPHILS % (AUTO) 52.8 % (33-66); RED BLOOD COUNT 3.84 M/MM3 (4.50-5.90)
[2016-09-24] MEDS ORDERED: ATRO2DRO4 PO (13:10)
[2016-09-24] MEDS ORDERED: GABA-338 PO (13:10)
[2016-09-24] MEDS ORDERED: GUAI5SYR PO (13:12)
[2016-09-24] MEDS ORDERED: LORA0.5T2 PO (13:12)
[2016-09-24] MEDS ORDERED: OXYC10TA51 PO (13:14)
--- NOTE | 2016-09-24 13:15 | NUR ---
PO PT GIVEN NECTAR THICK WATER REQUESTED AND PERMITTED BY Krystle SANCHEZ. PT SWALLOWS WITHOUT DIFFICULTY, PT PLACED IN FULLY UPRIGHT POSITION FOR INTAKE.
--- NOTE | 2016-09-24 13:18 | NUR ---
STATUS ASSISTED PT WITH UA COLLECTION VIA URINAL. PT REQUIRED FURTHER INCONTINENCE CARE. CARE PROVIDED BY THIS RN AND TERRI FRY.
[2016-09-24 13:21] LABS: ALBUMIN 3.7 G/DL (3.5-5.0); ALBUMIN/GLOBULIN RATIO 1.1 RATIO (1.1-2.2); ALKALINE PHOSPHATASE 92 U/L (38-126); ALT (SGPT) 22 U/L (21-72); ANION GAP 13 MEQ/L (5-15); AST (SGOT) 20 U/L (17-59); BUN/CREATININE RATIO 21 RATIO (6-26); CALCIUM 9.5 MG/DL (8.4-10.2); CHLORIDE 93 MEQ/L (98-107); CO2 - CARBON DIOXIDE 33 MEQ/L (22-30); CREATININE 0.8 MG/DL (0.8-1.5); GLOMERULAR FILTRATION RATE 95; GLUCOSE 282 MG/DL (75-110); POTASSIUM 4.1 MEQ/L (3.6-5); SODIUM 139 MEQ/L (134-144); TOTAL PROTEIN 7.1 G/DL (6.3-8.2)
[2016-09-24 13:21] LABS: BLOOD, URINE TRACE-INTACT (NEGATIVE); COLOR,URINE YELLOW (YELLOW); LEUKOCYTE ESTERASE ,URINE 3+ (NEGATIVE); NITRITE,URINE POSITIVE (NEGATIVE); UROBILINOGEN,URINE 0.2 EU/DL (NORMAL)
[2016-09-24 13:29] LABS: WBC CLUMPS,URINE MODERATE; WBC,URINE 50-200 /HPF (0-5)
[2016-09-24 13:30] LABS: BACTERIA,URINE 3+ (NEGATIVE); SQUAMOUS EPITHELIAL CELL,UR 0-5
[2016-09-24] MEDS ORDERED: CEFEPIME 1 GM IM ONE ×2 (13:30→13:45)
--- NOTE | 2016-09-24 13:41 | NUR ---
FILM PROCESS OPERATOR N. NOANNA FILM PROCESS OPERATOR IN ROOM.
[2016-09-24] MEDS ORDERED: WATER FOR INJECTION IM ONE (13:45)
--- NOTE | 2016-09-24 13:58 | NUR ---
MED PT/ GIVEN EDUCATION REGARDING CEFEPIME. UNDERSTANDING VERBALIZED.
[2016-09-24] MEDS ORDERED: LIDOCAINE 1% (10mg/ml) 5ml VIAL IJ ONE (14:00)
[2016-09-24] MEDS ORDERED: OXYCODONE/APAP 10mg/325mg TABLET PO ONE (14:15)
--- NOTE | 2016-09-24 14:16 | NUR ---
MED PT GIVEN INSTRUCTION REGARDING MEDICATION. AT BEDSIDE. PT ADDITIONALLY GIVEN APPLESAUCE TO RECEIVE CRUSHED MEDICATION.
--- NOTE | 2016-09-24 14:36 | NUR ---
CHERYL CONRADER AT BEDSIDE.
[2016-09-24] MEDS ORDERED: CEFE1VIA7 IM (15:03)
--- NOTE | 2016-09-24 15:25 | NUR ---
REPORT GIVEN TO MARIBETH NURSE AT [facility]. REQUESTED SCREENING TECH WITH WC TO COME.
--- NOTE | 2016-09-24 15:50 | NUR ---
PO PT GIVEN NECTAR THICKENED WATER AT THIS TIME, BED IN FULL UPRIGHT POSITION. REMAINS AT BEDSIDE.
--- NOTE | 2016-09-24 16:17 | NUR ---
STATUS CONTACTED MARIBETH AND [facility] TO INQUIRE REGARDING STATUS OF BACK MAKER. MARIBETH STATES THAT THEIR ADMINISTRATION IS CHECKING WITH THE [facility] REGARDING ADMITTANCE IT IS THEIR POLICY TO "GET THEM INTO PSYCH" IF THEY HAVE SUICIDAL IDEATION. INQUIRED WHY WE WERE NOT NOTIFIED REGARDING THE TIME LAPSE FROM MY REPORT TIME AT 1525. MARIBETH STATES THAT SHE WAS UNAWARE OF THE SITUATION AND INFORMED THEIR FRONT WORKER TO CONTACT US SOON THEY KNEW SOMETHING. THIS RN TRANSFERRED THE PHONE TO CHAO SAHU AT THIS TIME TO SPEAK WITH FRONT WORKER FROM [facility].
--- NOTE | 2016-09-24 16:34 | NUR ---
CAP JEWEL PLATE ASSEMBLER SPOKE WITH CADEN, CASTING MACHINE SET UP OPERATOR WHO CONFIRMED THAT A CAP JEWEL PLATE ASSEMBLER WOULD BE COMING TO REAL ESTATE COORDINATOR PATIENT.
--- NOTE | 2016-09-24 17:24 | NUR ---
IRON AND STEEL WORK SUPERVISOR SPOKE WITH STAFF AT THE [facility], INQUIRED REGARDING DELAY FOR TRANSPORTATION. STAFF STATES THAT THE IRON AND STEEL WORK SUPERVISOR WAS LOADING UP THE WC " WE SPEAK." STAFF STATES "THEY SHOULD BE THERE IN 20 MINUTES. INFORMED PT'S REGARDING ESTIMATED TIME OF ARRIVAL.
[2016-09-24 18:10] VITALS: BP 136/75; PULSE 70; RESP 16; TEMP 97.8; O2SAT 92
--- NOTE | 2016-09-24 18:10 | NUR ---
DEPART PT ASSISTED TO OWN WC VIA SLING LIFT. INCONTINENCE CARE PROVIDED PRIOR TO PLACEMENT IN WC. DISMISSAL PAPERWORK GIVEN TO PT'S CREDIT SPECIALIST WELL LINEN AND PILLOW BROUGHT AT TIME OF EMS ARRIVAL EARLIER. PT REQUESTED DISMISSAL INFORMATION WELL. 2ND COPY OF DISMISSAL INSTRUCTIONS GIVEN TO .
== END 2016-09-24 18:10 | disposition home or self-care (01) ==
LOC: ED 12:18
DX: R45.851 Suicidal ideations (principal); F41.9 Anxiety disorder, unspecified; N30.00 Acute cystitis without hematuria; Z79.82 Long term (current) use of aspirin; Z79.4 Long term (current) use of insulin
CPT/HCPCS: 36416; 80053; 81001; 82948; 85025; 87086; 93005; 96372; 99283; J0692